=== PATIENT | female | born 1940 | race African-American/Black ===

== ENCOUNTER 2023-08-27 16:33 | Inpatient (IN) | payer OTHER ==
[2023-08-27] MEDS ORDERED: VANCOMYCIN 1,000 MG in DEXTROSE 5%-WATER - 250 ML IVPB ONE (17:40)
[2023-08-27] MEDS ORDERED: ACETAMINOPHEN 1000 MG/100 ML BAG IVPB ONE (17:40)
[2023-08-27] MEDS ORDERED: CEFEPIME HCL 2 GM VIAL (RESTRICTED TO ID) IVPB ONE (17:46)
[2023-08-27 20:36] LABS: BASO % 0.5 % (0-2.0); HEMATOCRIT 38.7 % (32.4-45.2); HEMOGLOBIN 13.2 GM/dL (10.7-15.3); LYMPH % 5.7 % (8-40); MCHC 34.2 g/dl (32.0-36.0); MEAN CELL VOLUME 87.8 fl (80-96); MEAN PLT VOLUME 7.8 fl (7.5-11.1); MONO % 7.7 % (3.8-10.2); NEUT % 86.1 % (42.8-82.8); PLATELET COUNT 353 10^3/uL (134-434); RDW 17.3 % (11.6-15.6)
[2023-08-27 20:43] LABS: INR 1.04 (0.83-1.09); PROTHROMBIN TIME (PATIENT) 12.1 SEC (9.7-13.0)
[2023-08-27 20:46] LABS: ACTIVATED PTT 27.8 SECONDS (25.2-36.5)
[2023-08-27] MEDS ORDERED: ACETAMINOPHEN INJECTION 100 ML IVPB ONE (21:05)
[2023-08-27] MEDS ORDERED: CEFEPIME 2 GM/100 ML BAG IVPB ONE (21:06)
[2023-08-27] MEDS ORDERED: VANCOMYCIN 1 GRAM (PRE-DOCKED) 1,000 MG/250 ML BAG IVPB ONE (21:06)
[2023-08-27 21:27] LABS: ERYTHROCYTE SEDIMENTATION RATE 34 mm/hr (0-30)
[2023-08-27 21:42] LABS: POTASSIUM 3.9 mmol/L (3.5-5.1)
[2023-08-27 21:44] LABS: ALBUMIN 3.2 g/dl (3.4-5.0); BLOOD UREA NITROGEN 12.2 mg/dL (7-18); CALCIUM 10.1 mg/dL (8.5-10.1)
[2023-08-27 21:47] LABS: CREATININE 0.9 mg/dL (0.55-1.3)
[2023-08-27 21:49] LABS: BILIRUBIN,TOTAL 1.3 mg/dL (0.2-1); TOT PROT 7.4 g/dl (6.4-8.2)
[2023-08-28] MEDS ORDERED: VANCOMYCIN 1,000 MG in DEXTROSE 5%-WATER - 250 ML IVPB SCH (02:30)
[2023-08-28] MEDS ORDERED: CEFEPIME HCL 2 GM VIAL (RESTRICTED TO ID) IVPB SCH ×2 (02:30→03:00)
[2023-08-28 02:54] VITALS: BMI 26.8
[2023-08-28] MEDS ORDERED: VANCOMYCIN/WATER FOR INJ (PEG) 1,000 MG/200 ML BAG IVPB SCH ×2 (03:15→10:00)
[2023-08-28] MEDS ORDERED: ACETAMINOPHEN 1000 MG/100 ML BAG IVPB PRN (03:30)
[2023-08-28] MEDS: KETOROLAC TROMETHAMINE 15 MG/ML VIAL IVPUSH PRN ×2 (04:59→14:09)
[2023-08-28] MEDS: INSULIN SLIDING SCALE (NOVOLOG) 1 VIAL SQ SCH ×4 (06:27→22:09)
[2023-08-28] MEDS ORDERED: HYDROCHLOROTHIAZIDE 25 MG TABLET (FP) PO SCH (10:00)
[2023-08-28] MEDS ORDERED: CEFEPIME 2 GM in DEXTROSE 5%-WATER - 50 ML IVPB SCH (10:00)
[2023-08-28] MEDS: LIDOCAINE 4% PATCH TP SCH (10:03)
[2023-08-28] MEDS: GABAPENTIN 300 MG CAPSULE PO SCH (10:03)
[2023-08-28] MEDS: VALSARTAN 160 MG TABLET PO SCH (10:03)
[2023-08-28] MEDS: ALLOPURINOL 100 MG TABLET (FP) PO SCH (10:03)
[2023-08-28 10:26] LABS: BASO % 0.3 % (0-2.0); EOS % 0.1 % (0-4.5); HEMATOCRIT 34.3 % (32.4-45.2); HEMOGLOBIN 11.7 GM/dL (10.7-15.3); LYMPH % 6.4 % (8-40); MCH 30.4 pg (25.7-33.7); MCHC 34.2 g/dl (32.0-36.0); MEAN CELL VOLUME 88.9 fl (80-96); MEAN PLT VOLUME 7.5 fl (7.5-11.1); NEUT % 80.2 % (42.8-82.8); PLATELET COUNT 254 10^3/uL (134-434); RBC 3.86 M/mm3 (3.60-5.2); RDW 17.3 % (11.6-15.6); WHITE BLOOD COUNT 14.6 K/mm3 (4.0-10.0)
[2023-08-28 11:41] LABS: ERYTHROCYTE SEDIMENTATION RATE 40 mm/hr (0-30)
[2023-08-28] MEDS ORDERED: PNEUMOC 20-VAL CONJ-DIP CRM/PF 0.5 ML SYRINGE IM ONE (12:00)
[2023-08-28 12:44] LABS: CALCIUM 8.7 mg/dL (8.5-10.1); CREATININE 0.9 mg/dL (0.55-1.3); MAGNESIUM 1.8 mg/dL (1.8-2.4); PHOSPHOROUS 3.5 mg/dL (2.5-4.9); POTASSIUM 3.5 mmol/L (3.5-5.1)
[2023-08-28 19:20] LABS: URIC ACID 5.8 mg/dL (2.6-7.2)
[2023-08-28] MEDS: NAPROXEN 375 MG TABLET PO SCH (21:42)
[2023-08-28] MEDS: ATORVASTATIN CA 10 MG TABLET (FP) PO SCH (21:42)
[2023-08-28] MEDS: LIDOCAINE PATCH REMOVAL MC SCH (22:09)
[2023-08-29] MEDS: INSULIN SLIDING SCALE (NOVOLOG) 1 VIAL SQ SCH ×4 (06:18→21:30)
[2023-08-29] MEDS: GABAPENTIN 300 MG CAPSULE PO SCH (09:50)
[2023-08-29] MEDS: ALLOPURINOL 100 MG TABLET (FP) PO SCH (09:51)
[2023-08-29] MEDS: VALSARTAN 160 MG TABLET PO SCH (09:51)
[2023-08-29] MEDS: LIDOCAINE 4% PATCH TP SCH (09:51)
[2023-08-29] MEDS: NAPROXEN 375 MG TABLET PO SCH ×2 (10:45→21:20)
[2023-08-29 13:25] LABS: HEMATOCRIT 33.2 % (32.4-45.2); HEMOGLOBIN 11.3 GM/dL (10.7-15.3); MCH 30.7 pg (25.7-33.7); MCHC 34.1 g/dl (32.0-36.0); MEAN CELL VOLUME 89.9 fl (80-96); MEAN PLT VOLUME 7.7 fl (7.5-11.1); PLATELET COUNT 254 10^3/uL (134-434); RBC 3.69 M/mm3 (3.60-5.2); RDW 17.2 % (11.6-15.6)
[2023-08-29 13:31] LABS: BASO % 0.2 % (0-2.0); EOS % 0.1 % (0-4.5); HEMATOCRIT 33.1 % (32.4-45.2); HEMOGLOBIN 11.4 GM/dL (10.7-15.3); LYMPH % 12.8 % (8-40); MCH 30.9 pg (25.7-33.7); MCHC 34.3 g/dl (32.0-36.0); MEAN CELL VOLUME 89.8 fl (80-96); MEAN PLT VOLUME 7.6 fl (7.5-11.1); MONO % 11.8 % (3.8-10.2); NEUT % 75.1 % (42.8-82.8); PLATELET COUNT 251 10^3/uL (134-434); RBC 3.68 M/mm3 (3.60-5.2); RDW 17.2 % (11.6-15.6); WHITE BLOOD COUNT 9.8 K/mm3 (4.0-10.0)
[2023-08-29 13:59] LABS: POTASSIUM 3.1 mmol/L (3.5-5.1)
[2023-08-29 14:00] LABS: BLOOD UREA NITROGEN 28.1 mg/dL (7-18); CALCIUM 8.8 mg/dL (8.5-10.1)
[2023-08-29 14:03] LABS: CREATININE 1.3 mg/dL (0.55-1.3)
[2023-08-29] MEDS: ATORVASTATIN CA 10 MG TABLET (FP) PO SCH (21:20)
[2023-08-29] MEDS: LIDOCAINE PATCH REMOVAL MC SCH (22:04)
[2023-08-30] MEDS: INSULIN SLIDING SCALE (NOVOLOG) 1 VIAL SQ SCH ×4 (06:35→22:39)
[2023-08-30 09:33] LABS: BASO % 0.4 % (0-2.0); EOS % 0.5 % (0-4.5); HEMATOCRIT 32.7 % (32.4-45.2); HEMOGLOBIN 11.1 GM/dL (10.7-15.3); LYMPH % 16.6 % (8-40); MCH 30.4 pg (25.7-33.7); MCHC 33.8 g/dl (32.0-36.0); MEAN CELL VOLUME 89.9 fl (80-96); MEAN PLT VOLUME 7.8 fl (7.5-11.1); MONO % 11.1 % (3.8-10.2); NEUT % 71.4 % (42.8-82.8); PLATELET COUNT 264 10^3/uL (134-434); RBC 3.64 M/mm3 (3.60-5.2); RDW 17.3 % (11.6-15.6); WHITE BLOOD COUNT 8.2 K/mm3 (4.0-10.0)
[2023-08-30 09:50] LABS: POTASSIUM 3.1 mmol/L (3.5-5.1)
[2023-08-30 10:04] LABS: CALCIUM 9.4 mg/dL (8.5-10.1)
[2023-08-30 10:08] LABS: CREATININE 1.5 mg/dL (0.55-1.3)
[2023-08-30] MEDS: NAPROXEN 375 MG TABLET PO SCH ×2 (10:22→22:29)
[2023-08-30] MEDS: GABAPENTIN 300 MG CAPSULE PO SCH (10:22)
[2023-08-30] MEDS: ALLOPURINOL 100 MG TABLET (FP) PO SCH (10:22)
[2023-08-30] MEDS: VALSARTAN 160 MG TABLET PO SCH (10:24)
[2023-08-30] MEDS: LIDOCAINE 4% PATCH TP SCH (10:24)
[2023-08-30 12:58] LABS: HEMATOCRIT 31.5 % (32.4-45.2); HEMOGLOBIN 10.8 GM/dL (10.7-15.3); MCH 30.4 pg (25.7-33.7); MCHC 34.2 g/dl (32.0-36.0); MEAN CELL VOLUME 88.9 fl (80-96); MEAN PLT VOLUME 7.5 fl (7.5-11.1); PLATELET COUNT 285 10^3/uL (134-434); RBC 3.54 M/mm3 (3.60-5.2); RDW 17.2 % (11.6-15.6); WHITE BLOOD COUNT 8.9 K/mm3 (4.0-10.0)
[2023-08-30] MEDS: ATORVASTATIN CA 10 MG TABLET (FP) PO SCH (22:27)
[2023-08-30] MEDS: LIDOCAINE PATCH REMOVAL MC SCH (22:27)
[2023-08-31] MEDS: INSULIN SLIDING SCALE (NOVOLOG) 1 VIAL SQ SCH ×4 (09:04→22:23)
[2023-08-31] MEDS: GABAPENTIN 300 MG CAPSULE PO SCH (09:41)
[2023-08-31] MEDS: VALSARTAN 160 MG TABLET PO SCH (09:41)
[2023-08-31] MEDS: ALLOPURINOL 100 MG TABLET (FP) PO SCH (09:41)
[2023-08-31] MEDS: NAPROXEN 375 MG TABLET PO SCH ×2 (09:42→22:23)
[2023-08-31] MEDS: LIDOCAINE 4% PATCH TP SCH (09:43)
[2023-08-31 12:30] LABS: HEMATOCRIT 30.8 % (32.4-45.2); HEMOGLOBIN 10.4 GM/dL (10.7-15.3); MCH 30.4 pg (25.7-33.7); MCHC 33.8 g/dl (32.0-36.0); MEAN CELL VOLUME 89.8 fl (80-96); MEAN PLT VOLUME 7.2 fl (7.5-11.1); PLATELET COUNT 280 10^3/uL (134-434); RBC 3.43 M/mm3 (3.60-5.2); RDW 17.1 % (11.6-15.6)
[2023-08-31] MEDS: LIDOCAINE PATCH REMOVAL MC SCH (22:23)
[2023-08-31] MEDS: ATORVASTATIN CA 10 MG TABLET (FP) PO SCH (22:23)
[2023-09-01] MEDS: INSULIN SLIDING SCALE (NOVOLOG) 1 VIAL SQ SCH ×4 (06:20→21:10)
[2023-09-01] MEDS: ALLOPURINOL 100 MG TABLET (FP) PO SCH (09:53)
[2023-09-01] MEDS: GABAPENTIN 300 MG CAPSULE PO SCH (09:54)
[2023-09-01] MEDS: VALSARTAN 160 MG TABLET PO SCH (09:54)
[2023-09-01] MEDS: LIDOCAINE 4% PATCH TP SCH (09:54)
[2023-09-01] MEDS: NAPROXEN 375 MG TABLET PO SCH ×2 (09:54→21:22)
[2023-09-01] MEDS ORDERED: POTASSIUM CHLORIDE TABS 20 MEQ TABLET.ER (FP) PO SCH (11:45)
[2023-09-01] MEDS: ATORVASTATIN CA 10 MG TABLET (FP) PO SCH (21:10)
[2023-09-01] MEDS: LIDOCAINE PATCH REMOVAL MC SCH (21:18)
[2023-09-02] MEDS: INSULIN SLIDING SCALE (NOVOLOG) 1 VIAL SQ SCH ×4 (06:03→22:29)
[2023-09-02 10:21] LABS: BASO % 0.6 % (0-2.0); EOS % 2.1 % (0-4.5); HEMATOCRIT 33.4 % (32.4-45.2); HEMOGLOBIN 11.3 GM/dL (10.7-15.3); LYMPH % 26.8 % (8-40); MCH 30.3 pg (25.7-33.7); MCHC 33.8 g/dl (32.0-36.0); MEAN CELL VOLUME 89.6 fl (80-96); MEAN PLT VOLUME 7.3 fl (7.5-11.1); MONO % 10.1 % (3.8-10.2); NEUT % 60.4 % (42.8-82.8); PLATELET COUNT 286 10^3/uL (134-434); RBC 3.73 M/mm3 (3.60-5.2); RDW 17.1 % (11.6-15.6); WHITE BLOOD COUNT 5.6 K/mm3 (4.0-10.0)
[2023-09-02] MEDS: ALLOPURINOL 100 MG TABLET (FP) PO SCH (10:26)
[2023-09-02] MEDS: LIDOCAINE 4% PATCH TP SCH (10:26)
[2023-09-02] MEDS: GABAPENTIN 300 MG CAPSULE PO SCH (10:26)
[2023-09-02 10:38] LABS: POTASSIUM 4.3 mmol/L (3.5-5.1)
[2023-09-02 10:45] LABS: CALCIUM 9.8 mg/dL (8.5-10.1)
[2023-09-02 10:46] LABS: ALBUMIN 2.6 g/dl (3.4-5.0); BLOOD UREA NITROGEN 26.7 mg/dL (7-18); CREATININE 1.2 mg/dL (0.55-1.3)
[2023-09-02 10:52] LABS: BILIRUBIN,TOTAL 0.7 mg/dL (0.2-1); TOT PROT 6.6 g/dl (6.4-8.2)
[2023-09-02] MEDS: ACETAMINOPHEN 325 MG TABLET (FP) PO PRN (22:21)
[2023-09-02] MEDS: ATORVASTATIN CA 10 MG TABLET (FP) PO SCH (22:23)
[2023-09-02] MEDS: LIDOCAINE PATCH REMOVAL MC SCH (22:31)
[2023-09-03] MEDS: INSULIN SLIDING SCALE (NOVOLOG) 1 VIAL SQ SCH ×4 (06:32→21:55)
[2023-09-03 08:29] LABS: POTASSIUM 4.5 mmol/L (3.5-5.1)
[2023-09-03 08:34] LABS: CALCIUM 9.5 mg/dL (8.5-10.1)
[2023-09-03 08:35] LABS: BLOOD UREA NITROGEN 27.2 mg/dL (7-18)
[2023-09-03 08:38] LABS: CREATININE 1.1 mg/dL (0.55-1.3)
[2023-09-03] MEDS: VALSARTAN 160 MG TABLET PO SCH (09:36)
[2023-09-03] MEDS: LIDOCAINE 4% PATCH TP SCH (09:36)
[2023-09-03] MEDS: GABAPENTIN 300 MG CAPSULE PO SCH (09:36)
[2023-09-03] MEDS: ALLOPURINOL 100 MG TABLET (FP) PO SCH (09:36)
[2023-09-03] MEDS: NIFEdipine E.R. 30 MG TABLET PO SCH (13:06)
[2023-09-03 15:43] LABS: BF WBC & OTHER NUCLEATED CELLS 3972 /mm3
[2023-09-03 18:01] LABS: BODY FLUID MONOCYTE 16 %
[2023-09-03] MEDS: ATORVASTATIN CA 10 MG TABLET (FP) PO SCH (21:53)
[2023-09-03] MEDS: LIDOCAINE PATCH REMOVAL MC SCH (21:53)
[2023-09-04] MEDS: INSULIN SLIDING SCALE (NOVOLOG) 1 VIAL SQ SCH ×4 (06:12→21:44)
[2023-09-04 09:30] LABS: BASO % 0.6 % (0-2.0); EOS % 1.6 % (0-4.5); HEMATOCRIT 31.5 % (32.4-45.2); HEMOGLOBIN 10.8 GM/dL (10.7-15.3); LYMPH % 32.9 % (8-40); MCH 30.5 pg (25.7-33.7); MCHC 34.3 g/dl (32.0-36.0); MEAN CELL VOLUME 88.9 fl (80-96); MONO % 11.7 % (3.8-10.2); NEUT % 53.2 % (42.8-82.8); PLATELET COUNT 275 10^3/uL (134-434); RBC 3.54 M/mm3 (3.60-5.2); RDW 16.7 % (11.6-15.6); WHITE BLOOD COUNT 5.3 K/mm3 (4.0-10.0)
[2023-09-04] MEDS: NIFEdipine E.R. 30 MG TABLET PO SCH (09:49)
[2023-09-04] MEDS: LIDOCAINE 4% PATCH TP SCH (09:49)
[2023-09-04] MEDS: ALLOPURINOL 100 MG TABLET (FP) PO SCH (09:49)
[2023-09-04] MEDS: VALSARTAN 160 MG TABLET PO SCH (09:49)
[2023-09-04] MEDS: GABAPENTIN 300 MG CAPSULE PO SCH (09:49)
[2023-09-04 11:41] LABS: POTASSIUM 4.3 mmol/L (3.5-5.1)
[2023-09-04 12:08] LABS: ALBUMIN 2.4 g/dl (3.4-5.0); CALCIUM 9.7 mg/dL (8.5-10.1)
[2023-09-04 12:12] LABS: BILIRUBIN,TOTAL 0.3 mg/dL (0.2-1); TOT PROT 6.4 g/dl (6.4-8.2)
[2023-09-04] MEDS: ATORVASTATIN CA 10 MG TABLET (FP) PO SCH (21:43)
[2023-09-04] MEDS: LIDOCAINE PATCH REMOVAL MC SCH (21:44)
[2023-09-05] MEDS: INSULIN SLIDING SCALE (NOVOLOG) 1 VIAL SQ SCH ×4 (06:15→21:00)
[2023-09-05] MEDS: LIDOCAINE 4% PATCH TP SCH (09:33)
[2023-09-05] MEDS: GABAPENTIN 300 MG CAPSULE PO SCH (09:33)
[2023-09-05] MEDS: VALSARTAN 160 MG TABLET PO SCH (09:34)
[2023-09-05] MEDS: NIFEdipine E.R. 30 MG TABLET PO SCH (09:34)
[2023-09-05] MEDS: ALLOPURINOL 100 MG TABLET (FP) PO SCH (09:34)
[2023-09-05 10:17] VITALS: RESP 18
[2023-09-05] MEDS: ATORVASTATIN CA 10 MG TABLET (FP) PO SCH (21:00)
[2023-09-05] MEDS: LIDOCAINE PATCH REMOVAL MC SCH (21:00)
[2023-09-06] MEDS: INSULIN SLIDING SCALE (NOVOLOG) 1 VIAL SQ SCH ×4 (06:41→21:25)
[2023-09-06] MEDS: LIDOCAINE 4% PATCH TP SCH (10:48)
[2023-09-06] MEDS: GABAPENTIN 300 MG CAPSULE PO SCH (10:49)
[2023-09-06] MEDS: ALLOPURINOL 100 MG TABLET (FP) PO SCH (10:49)
[2023-09-06] MEDS: VALSARTAN 160 MG TABLET PO SCH (11:16)
[2023-09-06] MEDS: NIFEdipine E.R. 30 MG TABLET PO SCH (11:19)
[2023-09-06] MEDS: ENOXAPARIN NA (PORCINE) 40 MG/0.4 ML DISP.SYRIN SQ SCH (13:15)
[2023-09-06] MEDS: DOCUSATE SODIUM 100 MG CAPSULE (FP) PO PRN (18:41)
[2023-09-06] MEDS: LIDOCAINE PATCH REMOVAL MC SCH (21:24)
[2023-09-06] MEDS: ATORVASTATIN CA 10 MG TABLET (FP) PO SCH (21:26)
[2023-09-07] MEDS: INSULIN SLIDING SCALE (NOVOLOG) 1 VIAL SQ SCH ×4 (06:46→22:08)
[2023-09-07] MEDS: ACETAMINOPHEN 325 MG TABLET (FP) PO PRN ×2 (08:25→22:05)
[2023-09-07] MEDS: LIDOCAINE 4% PATCH TP SCH (09:53)
[2023-09-07] MEDS: VALSARTAN 160 MG TABLET PO SCH (09:54)
[2023-09-07] MEDS: ALLOPURINOL 100 MG TABLET (FP) PO SCH (09:55)
[2023-09-07] MEDS: GABAPENTIN 300 MG CAPSULE PO SCH (09:55)
[2023-09-07] MEDS: ENOXAPARIN NA (PORCINE) 40 MG/0.4 ML DISP.SYRIN SQ SCH (09:55)
[2023-09-07] MEDS: NIFEdipine E.R. 30 MG TABLET PO SCH (09:58)
[2023-09-07 10:09] LABS: BASO % 0.4 % (0-2.0); EOS % 1.2 % (0-4.5); HEMATOCRIT 31.8 % (32.4-45.2); HEMOGLOBIN 10.7 GM/dL (10.7-15.3); LYMPH % 19.3 % (8-40); MCH 29.9 pg (25.7-33.7); MCHC 33.6 g/dl (32.0-36.0); MEAN CELL VOLUME 88.9 fl (80-96); MEAN PLT VOLUME 7.2 fl (7.5-11.1); MONO % 10.5 % (3.8-10.2); NEUT % 68.6 % (42.8-82.8); PLATELET COUNT 285 10^3/uL (134-434); RBC 3.58 M/mm3 (3.60-5.2); RDW 17.2 % (11.6-15.6)
[2023-09-07 10:28] LABS: POTASSIUM 3.9 mmol/L (3.5-5.1)
[2023-09-07 10:29] LABS: CALCIUM 9.7 mg/dL (8.5-10.1)
[2023-09-07 10:30] LABS: BLOOD UREA NITROGEN 30.3 mg/dL (7-18)
[2023-09-07 10:33] LABS: CREATININE 1.1 mg/dL (0.55-1.3)
[2023-09-07] MEDS: DOCUSATE SODIUM 100 MG CAPSULE (FP) PO PRN (12:51)
[2023-09-07] MEDS: LIDOCAINE PATCH REMOVAL MC SCH (22:05)
[2023-09-07] MEDS: ATORVASTATIN CA 10 MG TABLET (FP) PO SCH (22:06)
[2023-09-08] MEDS: INSULIN SLIDING SCALE (NOVOLOG) 1 VIAL SQ SCH ×3 (06:34→16:29)
[2023-09-08] MEDS: GABAPENTIN 300 MG CAPSULE PO SCH (09:35)
[2023-09-08] MEDS: LIDOCAINE 4% PATCH TP SCH (09:35)
[2023-09-08] MEDS: NIFEdipine E.R. 30 MG TABLET PO SCH (09:35)
[2023-09-08] MEDS: ALLOPURINOL 100 MG TABLET (FP) PO SCH (09:36)
[2023-09-08] MEDS: VALSARTAN 160 MG TABLET PO SCH (09:36)
[2023-09-08] MEDS: ENOXAPARIN NA (PORCINE) 40 MG/0.4 ML DISP.SYRIN SQ SCH (09:37)
[2023-09-08 16:20] VITALS: BP 129/73; PULSE 73; TEMP 98.6
== END 2023-09-08 18:05 | DRG 554 ==
LOC: JER 16:33 → JERBED 23:08 → J5S 08-28 01:26
PROVIDERS: ADMIT Internal Medicine; ATTEND Internal Medicine
PROC: 0R9K3ZZ Drainage of Left Shoulder Joint, Percutaneous Approach (ICD-10-PCS; principal; 2023-09-03)
DX: M13.112 Monoarthritis, not elsewhere classified, left shoulder (principal); N17.9 Acute kidney failure, unspecified; I10 Essential (primary) hypertension; E78.5 Hyperlipidemia, unspecified; E11.9 Type 2 diabetes mellitus without complications; M65.9 Synovitis and tenosynovitis, unspecified; M10.9 Gout, unspecified; M25.522 Pain in left elbow; M25.412 Effusion, left shoulder; E87.6 Hypokalemia; M25.512 Pain in left shoulder; R26.81 Unsteadiness on feet; G62.9 Polyneuropathy, unspecified; I44.0 Atrioventricular block, first degree; Z96.653 Presence of artificial knee joint, bilateral
CPT/HCPCS: 36415; 71045-TC-FY; 72141-TC; 73030-TC-LT-FY; 73060-TC-LT-FY; 73090-TC-LT-FY; 73110-TC-LT-FY; 73130-TC-LT-FY; 73200-TC-RT; 73218-TC-LT; 76942-TC; 80048; 80053; 82945; 82962; 83615; 83735; 83986; 84100; 84157; 84550; 85025; 85027; 85610; 85651; 85730; 86140; 87040; 87070; 87075; 87102; 87116; 87205; 87206; 87210; 87635; 88108; 88305-TC; 90677; 93005; 93010; 93971; 97116-GP; 97161-GP; 99285-25

== ENCOUNTER 2024-02-12 15:43 | Emergency (ER) | payer OTHER ==
[2024-02-12 16:13] VITALS: BP 160/73; PULSE 92; RESP 16; TEMP 97.7; BMI 24.1
[2024-02-12] MEDS ORDERED: ACETAMINOPHEN INJECTION 100 ML IVPB ONE (17:26)
[2024-02-12] MEDS ORDERED: METHOCARBAMOL 500 MG TABLET ONE (17:26)
[2024-02-12] MEDS ORDERED: LIDOCAINE 4% PATCH TP ONE (17:27)
[2024-02-12 17:29] LABS: BASO % 0.8 % (0-2.0); EOS % 0.8 % (0-4.5); HEMATOCRIT 28.2 % (32.4-45.2); HEMOGLOBIN 9.8 GM/dL (10.7-15.3); MCHC 34.5 g/dl (32.0-36.0); MEAN CELL VOLUME 78.2 fl (80-96); MEAN PLT VOLUME 6.7 fl (7.5-11.1); NEUT % 54.4 % (42.8-82.8); PLATELET COUNT 501 10^3/uL (134-434); RBC 3.61 M/mm3 (3.60-5.2); RDW 22.5 % (11.6-15.6); WHITE BLOOD COUNT 7.7 K/mm3 (4.0-10.0)
[2024-02-12] MEDS: ACETAMINOPHEN 1000 MG/100 ML BAG IVPB ONE (17:34)
[2024-02-12] MEDS: LIDOCAINE 4% PATCH TP ONE (17:35)
[2024-02-12] MEDS: METHOCARBAMOL 500 MG TABLET PO ONE (17:35)
[2024-02-12 17:46] LABS: POTASSIUM 3.8 mmol/L (3.5-5.1)
[2024-02-12 17:48] LABS: CALCIUM 9.7 mg/dL (8.5-10.1)
[2024-02-12 17:49] LABS: ALBUMIN 2.6 g/dl (3.4-5.0); BLOOD UREA NITROGEN 13.2 mg/dL (7-18)
[2024-02-12 17:52] LABS: CREATININE 1.1 mg/dL (0.55-1.3)
[2024-02-12 17:53] LABS: BILIRUBIN,TOTAL 0.6 mg/dL (0.2-1); TOT PROT 7.8 g/dl (6.4-8.2)
[2024-02-12 17:58] LABS: N-TERMINAL BNP 808.6 pg/ml (5-450)
[2024-02-12 18:09] LABS: ANISOCYTOSIS 2+; TARGET CELLS 1+
[2024-02-12 18:40] LABS: PLATELET ESTIMATE INCREASED
[2024-02-12 20:45] LABS: URINE APPEARANCE CLEAR; URINE BILIRUBIN NEGATIVE (NEGATIVE); URINE COLOR YELLOW; URINE GLUCOSE (UA) NEGATIVE (NEGATIVE); URINE KETONE NEGATIVE (NEGATIVE); URINE LEUK ESTERASE NEGATIVE (NEGATIVE); URINE NITRITE NEGATIVE (NEGATIVE); URINE PROTEIN NEGATIVE (NEGATIVE); URINE UROBILINOGEN 0.2 mg/dL (0.2-1.0)
[2024-02-12] MEDS ORDERED: LIDOCAINE PATCH REMOVAL MC SCH (22:00)
== END 2024-02-13 04:04 ==
LOC: JER 15:43
PROC: 3E033NZ Introduction of Analgesics, Hypnotics, Sedatives into Peripheral Vein, Percutaneous Approach (ICD-10-PCS; principal; 2024-02-12)
DX: M54.50 Low back pain, unspecified (principal); G89.29 Other chronic pain; M79.89 Other specified soft tissue disorders
CPT/HCPCS: 36415; 72100-TC-FY; 80053; 81003; 83880; 85025; 87086; 93970-TC; 99285-25; J0131

== ENCOUNTER 2024-02-21 14:47 | Emergency (ER) | payer OTHER ==
[2024-02-21 15:04] VITALS: RESP 17; TEMP 97.8; BMI 24.1
[2024-02-21] MEDS ORDERED: LIDOCAINE 5% TOPICAL PATCH ONE (15:30)
[2024-02-21] MEDS: LIDOCAINE 5% TOPICAL PATCH TP ONE (15:32)
[2024-02-21 16:55] LABS: EOS % 1.7 % (0-4.5); HEMATOCRIT 29.2 % (32.4-45.2); HEMOGLOBIN 9.8 GM/dL (10.7-15.3); MCH 26.3 pg (25.7-33.7); MCHC 33.4 g/dl (32.0-36.0); MEAN CELL VOLUME 78.8 fl (80-96); MEAN PLT VOLUME 7.4 fl (7.5-11.1); MONO % 9.7 % (3.8-10.2); NEUT % 57.6 % (42.8-82.8); PLATELET COUNT 477 10^3/uL (134-434); RBC 3.71 M/mm3 (3.60-5.2); WHITE BLOOD COUNT 8.2 K/mm3 (4.0-10.0)
[2024-02-21 17:17] LABS: POTASSIUM 4.1 mmol/L (3.5-5.1)
[2024-02-21 17:19] LABS: CALCIUM 9.4 mg/dL (8.5-10.1)
[2024-02-21 17:20] LABS: ALBUMIN 2.7 g/dl (3.4-5.0)
[2024-02-21 17:23] LABS: CREATININE 1.9 mg/dL (0.55-1.3)
[2024-02-21 17:24] LABS: TOT PROT 7.6 g/dl (6.4-8.2)
[2024-02-21 17:25] LABS: BILIRUBIN,TOTAL 0.6 mg/dL (0.2-1)
[2024-02-21 17:26] LABS: ANISOCYTOSIS 2+; MACROCYTOSIS 2+
[2024-02-21 17:27] LABS: BLOOD UREA NITROGEN 44.2 mg/dL (7-18)
[2024-02-21] MEDS: SODIUM CHLORIDE 0.9% 500 ML INFUS.BAG IV ONE (18:21)
[2024-02-21] MEDS: ACETAMINOPHEN 1000 MG/100 ML BAG IVPB ONE (18:21)
[2024-02-21] MEDS ORDERED: ACETAMINOPHEN INJECTION 100 ML IVPB ONE (18:22)
[2024-02-21] MEDS: LIDOCAINE PATCH REMOVAL MC SCH (22:04)
[2024-02-21] MEDS ORDERED: VANCOMYCIN 1 GRAM (PRE-DOCKED) 1,000 MG/250 ML BAG IVPB ONE (22:18)
[2024-02-21] MEDS: VANCOMYCIN 1,000 MG in DEXTROSE 5%-WATER - 250 ML IVPB ONE (23:11)
[2024-02-21 23:53] VITALS: BP 139/77; PULSE 86
== END 2024-02-22 00:29 | disposition short-term general hospital (02) ==
LOC: JER 14:47
PROC: 3E03329 Introduction of Other Anti-infective into Peripheral Vein, Percutaneous Approach (ICD-10-PCS; principal; 2024-02-21)
PROC: 3E03329 Introduction of Other Anti-infective into Peripheral Vein, Percutaneous Approach (ICD-10-PCS; 2024-02-21)
PROC: 3E033NZ Introduction of Analgesics, Hypnotics, Sedatives into Peripheral Vein, Percutaneous Approach (ICD-10-PCS; 2024-02-21)
DX: M46.26 Osteomyelitis of vertebra, lumbar region (principal); K68.12 Psoas muscle abscess; M54.50 Low back pain, unspecified; Z20.822 Contact with and (suspected) exposure to COVID-19
CPT/HCPCS: 0241U-QW; 36415; 72131-TC; 72170-TC-FY; 74177-TC; 80053; 85025; 93005; 93010; 99285-25; J0131